=== PATIENT | female | born 1985 | race Caucasian/White ===

== ENCOUNTER 2019-05-04 12:20 | Inpatient (IN) | payer SELFPAY ==
[2019-05-04 12:58] LABS: Bilirubin Negative (Negative); Blood, Urine Negative (Negative); Glucose, Urine (Dipstick) Negative (Negative); Leukocyte Small (Negative); Nitrite Negative (Negative); Protein, Urine (Dipstick) Negative (Neg-Trace); Urobilinogen 0.2 mg/dL (Less than 2)
[2019-05-04 13:00] LABS: Clarity Clear (Clear); Pregnancy Test - Urine (BHCG) Negative (Negative); Pregu Control Background? CLEAR/WHITE (CLR/WHITE); Pregu Control Bar Appear? YES (CONTROL BAR)
[2019-05-04 13:01] LABS: Bacteria/HPF 1+ HPF (None Seen)
[2019-05-04 13:07] LABS: #Lymphocytes 1.2 thou/uL (1.20-3.40); #Monocytes 0.9 thou/uL (0.11-0.59); #Neutrophils 16.4 thou/uL (1.40-6.50); %Basophils 0.1 % (0.0-1.0); %Eosinophils 0.1 % (0.0-10.0); %Lymphocytes 6.5 % (21.0-51.0); %Monocytes 4.9 % (0.0-10.0); %Neutrophils 88.3 % (42.0-75.0); Hemoglobin 13.4 g/dL (12.0-16.0); Mean Corpuscular HGB CONC 33.8 g/dL (32.0-36.0); Mean Corpuscular Hemoglobin 30.2 pg (27.0-31.0); Mean Corpuscular Volume 89.5 fL (78.0-98.0); Mean Platelet Volume 8.9 fL (7.4-10.4); Platelet Count 262 thou/uL (130-400); RBC Distribution Width 11.2 % (11.5-14.5); Red Blood Cell (RBC) Count 4.45 mill/uL (4.20-5.40); White Blood Cell (WBC) Count 18.6 thou/uL (4.8-10.8)
[2019-05-04 13:30] LABS: ALT (SGPT) 27 U/L (8-55); AST (SGOT) 21 U/L (5-34); Albumin 4.9 g/dL (3.5-5.0); Alkaline Phosphatase 58 U/L (40-110); Anion Gap 16 mmol/L (10-20); BUN (Urea Nitrogen) 6 mg/dL (7.0-18.7); Bilirubin, Total 0.7 mg/dL (0.2-1.2); Calc. Creatinine Clearance 0 mL/min (70-130); Calcium 9.8 mg/dL (7.8-10.44); Carbon Dioxide 23 mmol/L (22-29); Chloride 103 mmol/L (98-107); Estimated GFR-MDRD Greater than 90; Globulin 2.6 g/dL (2.4-3.5); Glucose 115 mg/dL (70-105); Potassium 3.8 mmol/L (3.5-5.1); Protein, Total 7.5 g/dL (6.0-8.3); Sodium 138 mmol/L (136-145)
--- NOTE | 2019-05-04 13:36 | RAD ---
XR Chest 1 View Portable History: Chest pain Comparison: None. Findings: Lungs are clear. No pneumothorax or effusion. Cardiac silhouette and mediastinal contours a re within normal limits. No acute osseous abnormality. Impression: No acute intrathoracic abnormality.
[2019-05-04 13:52] LABS: CKMB 0.5 ng/mL (0-6.6)
[2019-05-04 14:48] LABS: Amphetamine Not Detected (NotDetected); Barbiturates Screen Not Detected (NotDetected); Benzodiazepine Screen Not Detected (NotDetected); Cocaine Metabolite Screen Not Detected (NotDetected); Medtox Reader # READER 4; Methadone Not Detected (NotDetected); Methamphetamine Not Detected (NotDetected); Opiate Screen Not Detected (NotDetected); Oxycodone Screen Not Detected (NotDetected); Phencyclidine (PCP) Not Detected (NotDetected); THC/Cannabinoid Screen Not Detected (NotDetected); Tricyclic Screen Not Detected (NotDetected)
[2019-05-04 14:49] LABS: Medtox Control Line Valid? VALID (VALID)
--- NOTE | 2019-05-04 15:07 | ULT ---
GALLBLADDER ULTRASOUND: Date: 05/04/2019 HISTORY: Abdominal pain. FINDINGS: Images of the gallbladder show numerous echogenic gallstones. Gallbladder wall is normal. Common duct is normal caliber. Visualized liver, pancreas, and right kidney appear unremarkable. IMPRESSION: Cholelithiasis. Technologist describes negative La's sign. POS: WANDER
[2019-05-04] MEDS ORDERED: Aspirin 325 MG TAB ONE (15:15)
[2019-05-04] MEDS ORDERED: Acetaminophen 650 MG Suppository PR PRN (15:52)
[2019-05-04] MEDS ORDERED: Ondansetron ODT 4 MG TAB PO PRN (15:52)
--- NOTE | 2019-05-04 15:59 | PDOC.HHP ---
Hospitalist HPI - History of Present Illness Epigastric Pain, N/V x 1 day History of Present Illness: No PCP The patient is a 33/F with no significant PMH presents to ER for above complaint. The patient reports around 0130, developing epigastric pain, nausea and vomiting. Describes epigastric pain as sharp, constant, radiating around to the right upper quadrant of the abdomen, 7/10, exacerbated and relieved by nothing. Reports eating some frito chips prior to onset. Denies any hemoptysis, SOB, heart palpitations, lower extremity swelling, fever or chills. She is currently taking ciprofloxacin for UTI x 4 days. Denies any urinary symptoms, denies any flank or back pain, denies any vaginal discharge. ED Course: EKG SA, 71 bpm Troponin 0.031 CKMB 0.5 CXR negative for any acute cardiopulmonary process RUQ US + cholelithiasis, non obstructing, negative sonographic looney sign WBC 18.6 UA 1+ bacteria, WBC 4-6, small leukocytes. UDS negative. Hospitalist ROS - Review of Systems Constitutional: denies: fever, chills, sweats, weakness, malaise, other ENT: denies: ear pain, ear discharge, nose pain, nose discharge, nose congestion , mouth pain, mouth swelling, throat pain, throat swelling, other Respiratory: denies: cough, dry, shortness of breath, hemoptysis, SOB with excertion, pleuritic pain, sputum, wheezing, other Cardiovascular: denies: palpitations, edema, light headedness Gastrointestinal: reports: nausea, vomiting, abdominal pain (describes epigastric pain radiating to RUQ). 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 Gastrointestinal: reports: no pertinent history Heme/Onc: reports: no pertinent history Hepatobiliary: reports: no pertinent history Psych: reports: no pertinent history Musculoskeletal: reports: no pertinent history Rheumatologic: reports: no pertinent history Renal/: reports: no pertinent history Endocrine: reports: no pertinent history Dermatology: reports: no pertinent history - Past Surgical History Past Surgical History: reports: no pertinent history - Family History Family History: reports: no pertinent history (Non contributory for any cardiac , pulmonary or gastrointestinal disease.) - Social History Smoking Status: Never smoker Alcohol: reports: None Drugs: reports: none Living Situation: With Family Occupation: Lives with spouse Activity level: independent ambulation - Exam General Appearance: NAD, awake alert Eye: anicteric sclera ENT: normocephalic atraumatic Neck: supple, no thyromegaly, no lymphadenopathy Heart: RRR, no murmur, no gallops, no rubs, normal peripheral pulses Respiratory: CTAB, no wheezes, no rales, no ronchi Gastrointestinal: soft, non-tender, non-distended, normal bowel sounds, no guarding, no rigidity Gastrointestinal - other findings: no CVAT Extremities: no cyanosis, no clubbing, no edema Skin: no lesions, no rashes Neurological: no focal deficits Musculoskeletal: normal tone, normal strength Psychiatric: normal affect, A&O x 3 Hospitalist Results - Labs Result Diagrams: 05/04/19 12:50 05/04/19 12:50 Lab results: WBC 18.6 thou/uL (4.8-10.8) H 05/04/19 12:50 Hgb 13.4 g/dL (12.0-16.0) 05/04/19 12:50 Hct 39.8 % (36.0-47.0) 05/04/19 12:50 MCV 89.5 fL (78.0-98.0) 05/04/19 12:50 Plt Count 262 thou/uL (130-400) 05/04/19 12:50 Neutrophils % 88.3 % (42.0-75.0) H 05/04/19 12:50 Sodium 138 mmol/L (136-145) 05/04/19 12:50 Potassium 3.8 mmol/L (3.5-5.1) 05/04/19 12:50 Chloride 103 mmol/L (98-107) 05/04/19 12:50 Carbon Dioxide 23 mmol/L (22-29) 05/04/19 12:50 BUN 6 mg/dL (7.0-18.7) L 05/04/19 12:50 Creatinine 0.71 mg/dL (0.6-1.1) 05/04/19 12:50 Glucose 115 mg/dL (70-105) H 05/04/19 12:50 Calcium 9.8 mg/dL (7.8-10.44) 05/04/19 12:50 Total Bilirubin 0.7 mg/dL (0.2-1.2) 05/04/19 12:50 AST 21 U/L (5-34) 05/04/19 12:50 ALT 27 U/L (8-55) 05/04/19 12:50 Alkaline Phosphatase 58 U/L (40-110) 05/04/19 12:50 CK-MB (CK-2) 0.5 ng/mL (0-6.6) 05/04/19 12:50 Troponin I 0.031 ng/mL (< 0.028) H 05/04/19 12:50 Serum Total Protein 7.5 g/dL (6.0-8.3) 05/04/19 12:50 Albumin 4.9 g/dL (3.5-5.0) 05/04/19 12:50 Urine Ketones Negative mg/dL (Negative) 05/04/19 12:36 Urine Blood Negative (Negative) 05/04/19 12:36 Urine Nitrite Negative (Negative) 05/04/19 12:36 Ur Leukocyte Esterase Small (Negative) H 05/04/19 12:36 Urine WBC 4-6 HPF (0-3) A 05/04/19 12:36 Ur Squamous Epith Cells 4-6 HPF (0-3) A 05/04/19 12:36 Urine Bacteria 1+ HPF (None Seen) A 05/04/19 12:36 Additional comment: Laboratory Tests 05/04/19 12:50 CK-MB (CK-2) 0.5 Troponin I 0.031 H - EKG Interpretation EKG: SA, 71 bpm - Radiology Interpretation US - abdomen Status: report reviewed by me Chest x-ray Status: report reviewed by me Hospitalist H&P A/P - Plan Plan: Patient drinking water, reports some mild epigastric pain, denies any nausea or vomiting at this time. 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 Garcia and he is in agreement with current plan.
[2019-05-04 18:45] VITALS: BMI 25.7
[2019-05-04 19:44] LABS: Troponin I 0.014 ng/mL (< 0.028)
[2019-05-04] MEDS: Famotidine/PF 20 mg/2ml Vial SLOW IVP SCH (20:34)
[2019-05-04] MEDS: Famotidine 20 MG TAB PO SCH (20:37)
[2019-05-04] MEDS: Acetaminophen 325 MG TAB PO PRN (22:09)
[2019-05-04] MEDS: Sodium Chloride 0.9% 1,000 ML IV SCH (23:53)
[2019-05-05 04:57] LABS: #Eosinphils 0.1 thou/uL (0.0-0.7); #Lymphocytes 1.6 thou/uL (1.20-3.40); #Monocytes 1.1 thou/uL (0.11-0.59); #Neutrophils 8.7 thou/uL (1.40-6.50); %Basophils 0.3 % (0.0-1.0); %Eosinophils 1.3 % (0.0-10.0); %Lymphocytes 14.1 % (21.0-51.0); %Monocytes 9.5 % (0.0-10.0); %Neutrophils 74.8 % (42.0-75.0); Hemoglobin 12.2 g/dL (12.0-16.0); Mean Corpuscular HGB CONC 34.1 g/dL (32.0-36.0); Mean Corpuscular Hemoglobin 30.6 pg (27.0-31.0); Mean Corpuscular Volume 89.8 fL (78.0-98.0); Platelet Count 213 thou/uL (130-400); RBC Distribution Width 11.1 % (11.5-14.5); White Blood Cell (WBC) Count 11.6 thou/uL (4.8-10.8)
[2019-05-05 05:18] LABS: Anion Gap 10 mmol/L (10-20); BUN (Urea Nitrogen) 6 mg/dL (7.0-18.7); Calc. Creatinine Clearance 119 mL/min (70-130); Calcium 8.4 mg/dL (7.8-10.44); Carbon Dioxide 24 mmol/L (22-29); Chloride 107 mmol/L (98-107); Estimated GFR-MDRD Greater than 90; Glucose 104 mg/dL (70-105); Potassium 3.4 mmol/L (3.5-5.1); Sodium 138 mmol/L (136-145)
[2019-05-05] MEDS: Famotidine/PF 20 mg/2ml Vial SLOW IVP SCH ×2 (08:14→19:50)
[2019-05-05] MEDS: Famotidine 20 MG TAB PO SCH ×2 (08:14→19:55)
[2019-05-05] MEDS ORDERED: Aspirin 81 mg Enteric Coated Tablet PO SCH (09:00)
--- NOTE | 2019-05-05 09:56 | CON ---
DATE OF CONSULTATION: CHIEF COMPLAINT: Chest pain. HISTORY OF PRESENT ILLNESS: The patient is a 33-year-old female, 2 years , who awoke with nausea, vomiting, diarrhea, dizziness, then substernal chest pain that radiated to the right upper quadrant. No previous episodes. No dark urine. She says she feels fine now, in fact she wants to go home and come back to have any kind of surgical procedure. She is still under evaluation for cardiac because of elevated cardiac enzymes. PAST MEDICAL HISTORY: She is otherwise healthy. PAST SURGICAL HISTORY: None. MEDICATIONS: Cipro for UTI. ALLERGIES: NO KNOWN DRUG ALLERGIES. SOCIAL HISTORY: She is , unemployed. No tobacco. No alcohol. FAMILY HISTORY: Noncontributory. PHYSICAL EXAMINATION: VITAL SIGNS: Her temperature is 98.2, pulse is 92, and blood pressure 106/58. GENERAL: She is awake, alert, does not appear to be in any distress. No jaundice. LUNGS: Clear. HEART: Regular rate and rhythm. ABDOMEN: Soft, nondistended, and nontender. Normal bowel sounds. EXTREMITIES: Unremarkable. LABORATORY DATA: Her white count is 11, H and H of 12 and 35, and platelet count of 213. Her electrolytes are fine. Her liver function tests are normal. IMAGING DATA: She had an ultrasound that shows cholelithiasis, negative La's sign, normal common duct. ASSESSMENT: Possible symptomatic cholelithiasis. PLAN: The patient and requests that once she has ruled out any cardiac issues, she would like to be discharged, will come back to my office to schedule an outpatient laparoscopic cholecystectomy. Job ID: [id number]
--- NOTE | 2019-05-05 15:39 | NM ---
EXAM: Nuclear Medicine Cardiac SPECT with EF and wall motion: HISTORY: Chest pain Protocol: Exam was performed using treadmill with Abdon protocol. The patient is injected with 31.0 millicuries of technetium 99m sestamibi intravenously for stress im ages. The patient is injected with 9.4 millicuries of technetium 99 sestamibi intravenously for resting henrietta ges. Multiple SPECT images are performed in the short axis, vertical long axis, and horizontal long axis. FINDINGS: No scan evidence for infarct or ischemia. TID:1.11 LHR 0.46 EDV 61 mL Ejection fraction: 70% Cardiac wall motion: Normal IMPRESSION: Unremarkable cardiac SPECT with EF and wall motion. No scan evidence for infarct or ischemia.
[2019-05-05] MEDS ORDERED: cefOXitin Sodium/Dextrose,Iso 2 GM in Premix Bag 1 BAG IVPB SCH (15:45)
[2019-05-05] MEDS: Sodium Chloride 0.9% 1,000 ML IV SCH (17:42)
--- NOTE | 2019-05-05 18:26 | PDOC.HOSPP ---
- Subjective Encounter Date: 05/05/19 Encounter Time: 18:25 Subjective: f/u for CP/abd pain with cholelithiasis noted on imaging. Mild troponin elevation on metabolic screening with AUTOMOTIVE ENGINEER negative. - Objective Vital Signs & Weight: Vital Signs (12 hours) Temp Pulse Resp BP Pulse Ox 05/05/19 16:08 98.8 F 91 16 107/66 100 05/05/19 07:07 98.2 F 92 16 106/58 L 97 Weight Weight 140 lb 12.8 oz I&O: 05/04/19 05/05/19 05/06/19 06:59 06:59 06:59 Intake Total 1153 Output Total 600 Balance 553 Result Diagrams: 05/05/19 04:37 05/05/19 04:37 Additional Labs: Microbiology 05/04/19 12:36 Urine clean catch Urine Culture - Preliminary NO GROWTH AT 12 HOURS Laboratory Tests 05/04/19 05/04/19 05/04/19 12:50 12:50 12:50 WBC 18.6 H Neutrophils % 88.3 H Potassium 3.8 Troponin I 0.031 H 05/04/19 05/04/19 05/05/19 16:22 19:05 04:37 WBC Neutrophils % 74.8 Potassium Troponin I 0.040 H 0.014 Radiology Reviewed by me: Yes (ABD sono - + cholelithiasis, no wall thickening or obstruction) EKG Reviewed by me: Yes (Tele - SR) Hospitalist ROS - Medication Medications: Active Medications Generic Name Dose Route Start Last Admin Trade Name Freq PRN Reason Stop Dose Admin Acetaminophen 650 mg 05/04/19 15:52 05/04/19 22:09 Tylenol PO 650 mg Q4H PRN Administration Headache/Fever/Mild Pain (1-3) Famotidine 20 mg 05/04/19 21:00 05/05/19 08:14 Pepcid SLOW IVP 20 mg Q12HR EMMA Administration Famotidine 20 mg 05/04/19 21:00 05/05/19 08:14 Pepcid PO Not Given BID EMMA Sodium Chloride 1,000 mls @ 70 mls/hr 05/05/19 00:05 05/05/19 17:42 Normal Saline 0.9% IV 1,000 mls .[id number] EMMA Administration - Exam General Appearance: NAD, awake alert Eye: PERRL, anicteric sclera ENT: normocephalic atraumatic, no oropharyngeal lesions Neck: supple, symmetric, no JVD, no thyromegaly, no lymphadenopathy Heart: RRR, no murmur, no gallops, no rubs, normal peripheral pulses Respiratory: CTAB, no wheezes, no rales, no ronchi, normal chest expansion Gastrointestinal: soft, non-tender, non-distended, normal bowel sounds, no palpable masses Extremities: no cyanosis, no clubbing, no edema Skin: normal turgor, no lesions, no rashes Neurological: cranial nerve grossly intact, no new deficit Musculoskeletal: normal tone, normal strength, no muscle wasting Psychiatric: normal affect, A&O x 3 Hosp A/P (1) Chest pain Code(s): R07.9 - CHEST PAIN, UNSPECIFIED Status: Acute Plan: AUTOMOTIVE ENGINEER negative, non-cardiac CP (2) Cholelithiasis Code(s): K80.20 - CALCULUS OF GALLBLADDER W/O CHOLECYSTITIS W/O OBSTRUCTION Status: Acute Plan: Plan for Lap cholecystectomy in am (3) Neutrophilic leukocytosis Code(s): D72.9 - DISORDER OF WHITE BLOOD CELLS, UNSPECIFIED Status: Acute Plan: Improved, continue supportive mgmt, Cefoxitin IV, repeat CBC in am (4) Hypokalemia Code(s): E87.6 - HYPOKALEMIA Status: Acute Plan: KCL supplementation, serial monitoring - Plan continue antibiotics, out of bed/ambulate, DVT proph w/SCDs stable currently Continue IVF"s KCL supplementation
[2019-05-05] MEDS ORDERED: Potassium Chloride 20 MEQ TAB PO SCH (18:45)
[2019-05-06] MEDS: Famotidine 20 MG TAB PO SCH (08:35)
[2019-05-06] MEDS: Famotidine/PF 20 mg/2ml Vial SLOW IVP SCH (08:36)
[2019-05-06] MEDS: Sodium Chloride 0.9% 1,000 ML IV SCH (08:36)
[2019-05-06] MEDS ORDERED: SUGAMMADEX SODIUM 200 MG/2 ML VIAL ONE (09:57)
[2019-05-06] MEDS ORDERED: Dexamethasone 20 MG/5 ML VIAL ONE (11:12)
[2019-05-06] MEDS ORDERED: Ketorolac Tromethamine 30 MG/ML VIAL ONE (11:12)
[2019-05-06] MEDS ORDERED: Lidocaine 1% PF 5 ML VIAL ONE (11:12)
[2019-05-06] MEDS ORDERED: PROPOFOL 200 MG/20 ML VIAL ONE (11:12)
[2019-05-06] MEDS ORDERED: Rocuronium Bromide 10 MG/ML (10ML VIAL) ONE (11:12)
[2019-05-06] MEDS ORDERED: Ondansetron PF 4 MG/2 ML Vial ONE (11:12)
[2019-05-06] MEDS ORDERED: Lidocaine 1% w/Epinephrine 1:100K 20 ML VIAL ONE (11:39)
[2019-05-06] MEDS ORDERED: Bupivacaine 0.25% HCL 30 ML VIAL ONE (11:39)
[2019-05-06] MEDS ORDERED: Fentanyl 100 MCG/2 ML VIAL ONE ×3 (11:49→14:06)
[2019-05-06] MEDS ORDERED: Promethazine HCl 25 MG/ML VIAL SLOW IVP PRN (12:59)
[2019-05-06] MEDS ORDERED: HYDROmorphone 2 MG/ML VIAL SLOW IVP PRN (12:59)
[2019-05-06] MEDS ORDERED: Ondansetron HCl/PF 4 MG/2 ML Vial IVP PRN (12:59)
[2019-05-06] MEDS ORDERED: Meperidine HCl/PF 25 MG/ML VIAL SLOW IVP PRN (12:59)
[2019-05-06] MEDS ORDERED: hydrALAZINE 20 MG/ML VIAL SLOW IVP PRN (13:42)
[2019-05-06] MEDS ORDERED: Dextrose 5% in Water 1,000 ML IV PRN (13:42)
[2019-05-06] MEDS ORDERED: Calcium Carbonate 500 MG ChewTAB PO PRN (13:42)
[2019-05-06] MEDS ORDERED: Ondansetron PF 4 MG/2 ML Vial IVP PRN (13:42)
[2019-05-06] MEDS ORDERED: Mag-Al 1200 mg/1200 mg/30 ML UDCUP PO PRN (13:42)
[2019-05-06] MEDS ORDERED: Morphine 2 MG/ML SYRINGE SLOW IVP PRN (13:42)
[2019-05-06] MEDS ORDERED: Morphine 4 MG/ML VIAL SLOW IVP PRN (13:42)
[2019-05-06] MEDS ORDERED: Dextrose 50% Abboject 50 ML SYRINGE SLOW IVP PRN (13:42)
[2019-05-06] MEDS ORDERED: Promethazine HCl 25 MG/ML VIAL IM PRN (13:42)
[2019-05-06] MEDS ORDERED: HYDROcodone/Acetaminophen 10/325 mg Tablet PO PRN ×2 (13:42)
--- NOTE | 2019-05-06 15:19 | OP ---
DATE OF PROCEDURE: 05/06/2019 PREOPERATIVE DIAGNOSIS: Biliary colic. PROCEDURE PERFORMED: Laparoscopic cholecystectomy. INDICATIONS: A 33-year-old female, presented with severe epigastric pain. Ultrasound showed cholelithiasis. FINDINGS: She had acute cholecystitis, distended thickened wall, inflamed gallbladder containing large stones. DESCRIPTION OF PROCEDURE: After informed consent was obtained, the patient was taken to the operating room, given general endotracheal anesthesia, placed in supine position. Abdomen was prepped and draped in usual fashion. Local anesthesia was infiltrated subcutaneously and deep. A subumbilical incision was performed, subcu divided sharply. The fascia was grasped. Two stay sutures of 0 Vicryl were placed on either side of midline. Midline was incised. Digital palpation revealed no local adhesions. A blunt 12 mm trocar was inserted. Pneumoperitoneum was created to a pressure of 15 mmHg. A 0 degree laparoscope was inserted under direct vision. Three 5 mm ports were placed subcostally. The gallbladder was grasped and advanced superiorly. Peritoneum lysed distally to expose a very short cystic duct and the cystic artery. The cystic duct, I was able to get three clips across it barely. It was divided. The artery was triply ligated and divided. The gallbladder was removed from its fossa utilizing electrocautery, removed from the abdomen through the umbilical port, was placed in an Endosac, removed from the umbilical port. Hemostasis was assured. Trocars and retractors were removed. The fascia was closed with interrupted 0 Vicryl suture. Skin was closed with interrupted 4-0 Rapide. Dermabond was applied. The patient tolerated the procedure well, transferred to Recovery in good condition. Sponge and needle count verified correct x2. Job ID: [id number]
[2019-05-06 16:17] VITALS: BP 104/58; TEMP 98.9
[2019-05-06] MEDS: Acetaminophen 325 MG TAB PO PRN (17:27)
[2019-05-06] MEDS ORDERED: cefOXitin 2 GM in Sodium Chloride 0.9% 100 ML IVPB SCH (20:00)
[2019-05-06] MEDS ORDERED: Famotidine/PF 20 mg/2ml Vial SLOW IVP SCH (21:00)
[2019-05-06] MEDS ORDERED: Famotidine 20 MG TAB PO SCH (21:00)
--- NOTE | 2019-05-07 02:46 | DIS ---
DATE OF ADMISSION: 05/04/2019 DATE OF DISCHARGE: 05/06/2019 DISCHARGE DIAGNOSES: 1. Cholelithiasis with acute cholecystitis. 2. Status post laparoscopic cholecystectomy. 3. Abdominal pain secondary to #1. 4. Hypokalemia, resolved. CONSULTATIONS: Dr. Recinos with General Surgery Service. PERTINENT LABORATORY AND X-RAY FINDINGS: Basic metabolic profile showed potassium level ranged between 3.4 to 3.8. Troponin I ranged between 0.014 to 0.040. CBC showed a white blood cell count ranged between 11.6 to 18.6. Urine culture dated 05/04/2019, showed no growth at 36 hours. Gallbladder fluid culture dated 05/06/2019, pending. Portable chest x-ray dated 05/04/2019, showed no acute cardiopulmonary process. Abdominal ultrasound dated 05/04/2019, showed cholelithiasis. Common bile duct within normal limits. Cardiolite stress test dated 05/05/2019, showed no evidence for reversible or fixed ischemia with calculated ejection fraction of 70%. HOSPITAL COURSE: The patient was observed on the telemetry unit after initially presenting with nausea, vomiting, and abdominal pain. The patient underwent extensive evaluation including abdominal imaging showing evidence of cholelithiasis. The patient was also noted with mild elevation of troponin I, undergoing cardiac stress testing showing no evidence of reversible or fixed ischemia with calculated ejection fraction of 70%. Due to the patient's presentation and symptomatology, General Surgery was consulted, at which point, the patient underwent laparoscopic cholecystectomy on 05/06/2019. The patient remained clinically stable postoperatively, tolerating liquid intake without clinical decompensation. I have examined the patient at the time of discharge and discussed followup instructions. The patient overall clinically stable and ready for discharge on 05/06/2019. DISCHARGE MEDICATIONS: 1. [employer] [place] 5/325 mg 1 to 2 tablets p.o. q.6 hours p.r.n. pain. 2. Zofran 4 mg p.o. q.6 hours p.r.n. 3. Ciprofloxacin 500 mg p.o. b.i.d. x3 days. FOLLOWUP: The patient may follow up with Dr. Prosper Recinos within 2 weeks of discharge. CONDITION ON DISCHARGE: Stable. ACTIVITY: Ad-damaris. DIET: Regular. CODE STATUS: Full. DISPOSITION: To home on 05/06/2019. Job ID: [id number]
[2019-05-07] MEDS ORDERED: Enoxaparin Sodium 40 MG/0.4 ML SYRINGE SC SCH (09:00)
--- NOTE | 2019-05-10 18:13 | EKG ---
Test Reason : CHEST PAIN Blood Pressure : / mmHG Vent. Rate : 071 BPM Atrial Rate : 071 BPM P-R Int : 102 ms QRS Dur : 086 ms QT Int : 398 ms P-R-T Axes : 058 060 038 degrees QTc Int : 432 ms Sinus rhythm with sinus arrhythmia with short [place] Otherwise normal ECG Confirmed by CALEB THOMPSON, ODIN Velázquez ([id number]), deputy editor in chief FABIOLA NICOLE ([id number]) on 05/10/2019 6:13:42 PM Referred By: Confirmed By:ODIN ELLIS MD
[2019-05-10 19:37] LABS: Fungus Stain Final report (.)
== END 2019-05-06 18:31 | disposition home or self-care (01) | DRG 418 ==
LOC: ERS 12:20 → 2SW 15:07 → OBSVTOIN 15:07
PROVIDERS: ADMIT Internal Medicine; ATTEND Internal Medicine
PROC: 0FT44ZZ Resection of Gallbladder, Percutaneous Endoscopic Approach (ICD-10-PCS; principal; 2019-05-06)
DX: K80.00 Calculus of gallbladder with acute cholecystitis without obstruction (principal); N39.0 Urinary tract infection, site not specified; R07.9 Chest pain, unspecified; R79.89 Other specified abnormal findings of blood chemistry; E87.6 Hypokalemia
CPT/HCPCS: 36415; 71045; 76705; 78452; 80048; 80053; 80306; 81003; 81015; 81025; 82553; 84484; 85025; 87070; 87086; 87102; 87116; 87205; 87206; 88304; 93005; 93017; A9500; J0690; J0694; J1100; J1885; J2001; J2405; J2704; J3010; S0020; S0028